=== PATIENT | male | born 1990 | race Caucasian/White ===

== ENCOUNTER 2016-04-02 20:41 | Emergency (ER) | payer OTHER ==
[~2016-04-02] VITALS: Ht 180.3 cm; Wt 88.9 kg
[2016-04-02 20:56] VITALS: BP 148/83
== END 2016-04-02 22:48 | disposition home or self-care (01) ==
LOC: ER 20:44
DX: S29.012A Strain of muscle and tendon of back wall of thorax, initial encounter (principal); R07.81 Pleurodynia; M54.9 Dorsalgia, unspecified; V43.62XA Car passenger injured in collision with other type car in traffic accident, initial encounter; Y93.89 Activity, other specified; Y99.8 Other external cause status; Y92.89 Other specified places as the place of occurrence of the external cause; Z90.79 Acquired absence of other genital organ(s)
CPT/HCPCS: 71111; 74176